=== PATIENT | female | born 1940 | race Caucasian/White ===

== ENCOUNTER 2020-12-09 13:49 | Inpatient (IN) ==
[2020-12-09] MEDS ORDERED: (Diclofenac Sodium 1 APPL) TP PRN (19:28)
[2020-12-09] MEDS ORDERED: Dextrose Gel 15 GM/37.5 ML TUBE PO PRN ×2 (19:30)
[2020-12-09] MEDS ORDERED: *HR* Dextrose 50 % in Water (Vial) 50 ML VIAL IVP PRN (19:30)
[2020-12-09] MEDS ORDERED: D5% in Water 1,000 ML IVC PRN (19:30)
[2020-12-09] MEDS: Insulin LISPRO 300 UNITS/3 ML VIAL SUBQ SCH (22:24)
[2020-12-09] MEDS: Melatonin 3 MG TABLET PO SCH (22:24)
[2020-12-09] MEDS: Apixaban 5 MG TABLET PO SCH (22:24)
[2020-12-09] MEDS: Gabapentin 300 MG CAPSULE PO SCH (22:25)
[2020-12-10 05:42] LABS: Basophils % 0.1 %; Eosinophils # 0.1 K/mcL (0.0-0.6); Eosinophils % 0.9 %; Hematocrit 34.3 % (35.3-44.9); Hemoglobin 11.2 g/dL (11.5-15.4); Immature Granulocytes % 1.1 % (0-4); Lymphocytes # 1.2 K/mcL (0.6-4.6); Lymphocytes % 14.6 %; Mean Corpuscular HGB Conc 32.7 g/dL (31.6-35.5); Mean Corpuscular Hemoglobin 29.6 pg (28.0-33.3); Mean Corpuscular Volume 90.5 fL (83.0-100.0); Mean Platelet Volume 12.5 fL (9.4-12.4); Monocytes # 2.1 K/mcL (0.0-1.3); Monocytes % 25.3 %; Neutrophils # 4.7 K/mcL (1.6-8.9); Platelet Count 123 K/mcL (140-400); Red Blood Count 3.79 M/mcL (3.82-4.97); Red Cell Distribution Width 15.4 % (11.5-14.5); White Blood Count 8.1 K/mcL (4.3-11.1)
[2020-12-10 05:59] LABS: BUN/Creatinine Ratio 18 (6-26); Blood Urea Nitrogen 16 mg/dL (8-23); Calcium 9.8 mg/dL (8.6-10.3); Carbon Dioxide 24 mEq/L (23-29); Chloride 102 mEq/L (98-107); Glucose 154 mg/dL (70-105); Osmolality,Calculated 284 (280-300); Sodium 135 mEq/L (136-145); eGFR For African Americans > 60 (> 60); eGFR For Non-African Americans > 60 (> 60)
[2020-12-10 06:39] LABS: Platelet Estimate Slight Decrease (Normal)
[2020-12-10] MEDS: Cyanocobalamin (B-12) 1,000 MCG TABLET PO SCH (08:32)
[2020-12-10] MEDS: *HR* Metformin 500 MG TABLET PO SCH (08:33)
[2020-12-10] MEDS: Anastrozole 1 MG TABLET PO SCH (08:34)
[2020-12-10] MEDS: Losartan/HCTZ 50-12.5 TABLET PO SCH (08:34)
[2020-12-10] MEDS: Apixaban 5 MG TABLET PO SCH ×2 (08:35→21:04)
[2020-12-10] MEDS: amLODIPine 5 MG TABLET PO SCH (08:35)
[2020-12-10] MEDS: Cholecalciferol (D-3) 1,000 UNIT (25MCG) TABLET PO SCH (08:36)
[2020-12-10] MEDS: Insulin LISPRO 300 UNITS/3 ML VIAL SUBQ SCH ×4 (08:37→21:04)
[2020-12-10] MEDS: EPA PO SCH (08:39)
[2020-12-10] MEDS: DHA PO SCH (08:39)
[2020-12-10] MEDS: OMEGA PO SCH (08:39)
[2020-12-10] MEDS: FISH OIL PO SCH (08:39)
[2020-12-10] MEDS: Melatonin 3 MG TABLET PO SCH (21:04)
[2020-12-10] MEDS: Gabapentin 300 MG CAPSULE PO SCH (21:04)
[2020-12-11] MEDS: Insulin LISPRO 300 UNITS/3 ML VIAL SUBQ SCH ×4 (09:22→21:11)
[2020-12-11] MEDS: amLODIPine 5 MG TABLET PO SCH (09:23)
[2020-12-11] MEDS: Anastrozole 1 MG TABLET PO SCH (09:23)
[2020-12-11] MEDS: Cyanocobalamin (B-12) 1,000 MCG TABLET PO SCH (09:23)
[2020-12-11] MEDS: Losartan/HCTZ 50-12.5 TABLET PO SCH (09:23)
[2020-12-11] MEDS: *HR* Metformin 500 MG TABLET PO SCH (09:23)
[2020-12-11] MEDS: Apixaban 5 MG TABLET PO SCH ×2 (09:24→21:10)
[2020-12-11] MEDS: FISH OIL PO SCH (09:24)
[2020-12-11] MEDS: DHA PO SCH (09:24)
[2020-12-11] MEDS: OMEGA PO SCH (09:24)
[2020-12-11] MEDS: Cholecalciferol (D-3) 1,000 UNIT (25MCG) TABLET PO SCH (09:24)
[2020-12-11] MEDS: EPA PO SCH (09:24)
[2020-12-11] MEDS: Melatonin 3 MG TABLET PO SCH (21:10)
[2020-12-11] MEDS: Gabapentin 300 MG CAPSULE PO SCH (21:10)
[2020-12-11] MEDS: Acetaminophen 325 MG TABLET PO PRN (21:53)
[2020-12-12] MEDS: amLODIPine 5 MG TABLET PO SCH (08:37)
[2020-12-12] MEDS: Losartan/HCTZ 50-12.5 TABLET PO SCH (08:37)
[2020-12-12] MEDS: *HR* Metformin 500 MG TABLET PO SCH (08:37)
[2020-12-12] MEDS: Cholecalciferol (D-3) 1,000 UNIT (25MCG) TABLET PO SCH (08:37)
[2020-12-12] MEDS: Anastrozole 1 MG TABLET PO SCH (08:37)
[2020-12-12] MEDS: OMEGA PO SCH (08:38)
[2020-12-12] MEDS: FISH OIL PO SCH (08:38)
[2020-12-12] MEDS: EPA PO SCH (08:38)
[2020-12-12] MEDS: DHA PO SCH (08:38)
[2020-12-12] MEDS: Apixaban 5 MG TABLET PO SCH ×2 (08:38→21:04)
[2020-12-12] MEDS: Cyanocobalamin (B-12) 1,000 MCG TABLET PO SCH (08:39)
[2020-12-12] MEDS: Insulin LISPRO 300 UNITS/3 ML VIAL SUBQ SCH ×4 (08:41→21:10)
[2020-12-12] MEDS ORDERED: (Alendronate Sodium [Fosamax] 70 MG) PO SCH (09:00)
[2020-12-12] MEDS: Melatonin 3 MG TABLET PO SCH (21:03)
[2020-12-12] MEDS: Gabapentin 300 MG CAPSULE PO SCH (21:04)
[2020-12-12] MEDS: Acetaminophen 325 MG TABLET PO PRN (21:04)
[2020-12-13] MEDS: Insulin LISPRO 300 UNITS/3 ML VIAL SUBQ SCH ×4 (08:17→21:21)
[2020-12-13] MEDS: *HR* Metformin 500 MG TABLET PO SCH (10:27)
[2020-12-13] MEDS: amLODIPine 5 MG TABLET PO SCH (10:28)
[2020-12-13] MEDS: Anastrozole 1 MG TABLET PO SCH (10:28)
[2020-12-13] MEDS: Apixaban 5 MG TABLET PO SCH ×2 (10:28→21:20)
[2020-12-13] MEDS: Cyanocobalamin (B-12) 1,000 MCG TABLET PO SCH (10:28)
[2020-12-13] MEDS: Cholecalciferol (D-3) 1,000 UNIT (25MCG) TABLET PO SCH (10:28)
[2020-12-13] MEDS: Losartan/HCTZ 50-12.5 TABLET PO SCH (10:28)
[2020-12-13] MEDS: EPA PO SCH (10:29)
[2020-12-13] MEDS: DHA PO SCH (10:29)
[2020-12-13] MEDS: OMEGA PO SCH (10:29)
[2020-12-13] MEDS: FISH OIL PO SCH (10:29)
[2020-12-13] MEDS: Gabapentin 300 MG CAPSULE PO SCH (21:20)
[2020-12-13] MEDS: Melatonin 3 MG TABLET PO SCH (21:20)
[2020-12-13] MEDS: Acetaminophen 325 MG TABLET PO PRN (21:23)
[2020-12-14] MEDS: Losartan/HCTZ 50-12.5 TABLET PO SCH (08:42)
[2020-12-14] MEDS: Cholecalciferol (D-3) 1,000 UNIT (25MCG) TABLET PO SCH (08:42)
[2020-12-14] MEDS: Apixaban 5 MG TABLET PO SCH ×2 (08:42→20:16)
[2020-12-14] MEDS: amLODIPine 5 MG TABLET PO SCH (08:42)
[2020-12-14] MEDS: Anastrozole 1 MG TABLET PO SCH (08:42)
[2020-12-14] MEDS: *HR* Metformin 500 MG TABLET PO SCH (08:42)
[2020-12-14] MEDS: OMEGA PO SCH (08:43)
[2020-12-14] MEDS: Cyanocobalamin (B-12) 1,000 MCG TABLET PO SCH (08:43)
[2020-12-14] MEDS: FISH OIL PO SCH (08:43)
[2020-12-14] MEDS: DHA PO SCH (08:43)
[2020-12-14] MEDS: EPA PO SCH (08:43)
[2020-12-14] MEDS: Insulin LISPRO 300 UNITS/3 ML VIAL SUBQ SCH ×4 (08:43→19:55)
[2020-12-14] MEDS ORDERED: (Semaglutide [Ozempic] 0.5 MG) SQ SCH (09:00)
[2020-12-14 18:38] VITALS: BP 166/81
[2020-12-14] MEDS: Gabapentin 300 MG CAPSULE PO SCH (20:16)
[2020-12-14] MEDS: Melatonin 3 MG TABLET PO SCH (20:16)
[2020-12-14] MEDS: Acetaminophen 325 MG TABLET PO PRN (20:25)
[2020-12-15] MEDS: Apixaban 5 MG TABLET PO SCH (08:30)
[2020-12-15] MEDS: Anastrozole 1 MG TABLET PO SCH (08:30)
[2020-12-15] MEDS: amLODIPine 5 MG TABLET PO SCH (08:30)
[2020-12-15] MEDS: Cholecalciferol (D-3) 1,000 UNIT (25MCG) TABLET PO SCH (08:30)
[2020-12-15] MEDS: Insulin LISPRO 300 UNITS/3 ML VIAL SUBQ SCH (08:30)
[2020-12-15] MEDS: Losartan/HCTZ 50-12.5 TABLET PO SCH (08:30)
[2020-12-15] MEDS: *HR* Metformin 500 MG TABLET PO SCH (08:30)
[2020-12-15] MEDS: Cyanocobalamin (B-12) 1,000 MCG TABLET PO SCH (08:31)
== END 2020-12-15 11:07 | disposition home health service (06) | DRG 57 ==
LOC: INPGRE 18:49
PROVIDERS: ADMIT Family Medicine; ATTEND Family Medicine